=== PATIENT | female | born 1960 | race Two or more races ===

== ENCOUNTER 2020-03-10 06:24 | Day surgery (SDC) | payer OTHER ==
[~2020-03-10 06:24] MED LIST: ALTACE10 MG PO; FENOFIB PO; FORTAMET500 MG PO; HYDRODIURIL12.5 MG PO
== END 2020-03-10 13:15 | disposition home or self-care (01) ==
LOC: CIR.AMB 06:24
PROVIDERS: ATTEND Obstetrics & Gynecology
DX: N84.0 Polyp of corpus uteri (principal); Z20.828 Contact with and (suspected) exposure to other viral communicable diseases

== ENCOUNTER 2020-04-15 07:00 | Inpatient (IN) | payer OTHER ==
[~2020-04-15] VITALS: Ht 157.5 cm; Wt 72.1 kg
[2020-04-15] MEDS ORDERED: TRAJENTA PO (09:19)
[2020-04-15] MEDS ORDERED: ALTACE10 MG PO (09:20)
[2020-04-22] MEDS ORDERED: TRADJENTA5 MG PO (08:29)
[2020-04-22] MEDS ORDERED: MAXIMUM D3325 MCG (08:30)
[2020-04-22] MEDS ORDERED: FENOFIBRATE145 MG (08:30)
== END 2020-04-23 12:50 | disposition home or self-care (01) | DRG 743 ==
LOC: SURH 04-21 07:00 → OB/GYN 04-21 17:12
PROVIDERS: ADMIT Obstetrics & Gynecology; ATTEND Obstetrics & Gynecology
PROC: 0UT00ZZ Resection of Right Ovary, Open Approach (ICD-10-PCS; 2020-04-21)
PROC: 0UT50ZZ Resection of Right Fallopian Tube, Open Approach (ICD-10-PCS; 2020-04-21)
PROC: 0UT90ZZ Resection of Uterus, Open Approach (ICD-10-PCS; principal; 2020-04-21 08:30)
DX: N85.01 Benign endometrial hyperplasia (principal); N72 Inflammatory disease of cervix uteri; D25.1 Intramural leiomyoma of uterus; N83.291 Other ovarian cyst, right side; N94.89 Other specified conditions associated with female genital organs and menstrual cycle; N95.0 Postmenopausal bleeding